=== PATIENT | female | born 1965 | race Caucasian/White ===

== ENCOUNTER → 2017-01-08 | Outpatient (REF) | payer BC ==
[~2017-01-08] MED LIST: ALBU17IN INH; ATOR1TAB21 PO; BIOT50004 PO; CIPR500T89 PO; FLAG500T PO; OMEP20CA3 PO; VITA100066 PO; WELLTAB38 PO
[2017-01-08 16:15] LABS: URIC ACID 4.1 MG/DL (2.6-6.0)
[2017-01-11 00:06] LABS: Lyme Disease IgG/IgM Antibodie <0.91 ISR (0.00-0.90); Lyme Disease IgM Ab Quantitati <0.80 index (0.00-0.79)
== END ==
LOC: M LABDRAW1 15:37
PROVIDERS: ATTEND Internal Medicine Rheumatology
DX: M05.79 Rheumatoid arthritis with rheumatoid factor of multiple sites without organ or systems involvement (principal); M10.09 Idiopathic gout, multiple sites; E55.9 Vitamin D deficiency, unspecified; Z79.899 Other long term (current) drug therapy

== ENCOUNTER → 2017-01-26 | Outpatient (CLI) | payer BC ==
[2017-01-26 11:48] LABS: MICROSCOPIC INDICATED? MAN YES (NO)
[2017-01-26 11:50] LABS: BASO % 0.7 % (0.0-1.0); EOS # 0.1 K/mm3 (0.0-0.50); EOS % 2.5 % (0.0-3.0); LARGE UNSTAINED CELL # 0.1 K/mm3 (0.0-0.4); LARGE UNSTAINED CELL % 1.6 % (0.0-4.0); LYMPH # 2.2 K/mm3 (1.5-4.5); MEAN CORPUSCULAR HEMOGLOBIN 31.2 pg (27.0-33.0); MEAN CORPUSCULAR HGB CONC 34.2 g/dl (32.0-36.5); MONO # 0.2 K/mm3 (0.0-0.8); NEUTROPHILS # 2.9 K/mm3 (1.8-7.7); NEUTROPHILS % 52.1 % (36.0-66.0); PLATELET COUNT, AUTOMATED 287 k/mm3 (150-450); RED CELL DISTRIBUTION WIDTH 11.9 % (11.5-14.5); WHITE BLOOD COUNT 5.6 K/mm3 (4.0-10.0)
[2017-01-26 12:18] LABS: RBC, URINE NONE SEEN /hpf (0-3); SQUAMOUS EPITHELIAL CELL URINE SMALL AMOUNT /hpf (SMALL AMT); WBC, URINE 0-1 /hpf (0-3)
[2017-01-26 12:19] LABS: BACTERIA, URINE NONE SEEN; HYALINE CAST, URINE NONE SEEN /lpf (0-1)
[2017-01-26 12:21] LABS: ALBUMIN 3.5 GM/DL (3.2-5.2); ALKALINE PHOSPHATASE 126 U/L (45-117); ALT/SGPT 39 U/L (12-78); ANION GAP 8 MEQ/L (8-16); AST/SGOT 37 U/L (15-37); BILIRUBIN,TOTAL 0.3 MG/DL (0.2-1.0); BLOOD UREA NITROGEN 11 MG/DL (7-18); CALCIUM LEVEL 8.3 MG/DL (8.5-10.1); CARBON DIOXIDE LEVEL 29 MEQ/L (21-32); CHLORIDE LEVEL 105 MEQ/L (98-107); CREATININE FOR GFR 0.87 MG/DL (0.55-1.02); GLOMERULAR FILTRATION RATE > 60.0 (>51); GLUCOSE, FASTING 121 MG/DL (70-105); MICROSCOPIC EXAM PERFORMED; POTASSIUM SERUM 4.7 MEQ/L (3.5-5.1); SODIUM LEVEL 142 MEQ/L (136-145)
== END ==
LOC: M SMT 08:15
PROVIDERS: ATTEND Internal Medicine Rheumatology
DX: R31.1 Benign essential microscopic hematuria (principal); M05.772 Rheumatoid arthritis with rheumatoid factor of left ankle and foot without organ or systems involvement; Z79.899 Other long term (current) drug therapy

== ENCOUNTER → 2017-05-18 | Outpatient (REF) | payer BC ==
[~2017-05-18] MED LIST changes: +CIPR-249 PO; -CIPR500T89 PO; +ZOLO50TA PO
== END ==
LOC: M LAB REF 12:27
PROVIDERS: ATTEND Nurse Practitioner Family
DX: E78.00 Pure hypercholesterolemia, unspecified (principal)

== ENCOUNTER → 2017-05-22 | Outpatient (CLI) | payer BC ==
[2017-05-22 08:27] LABS: MEAN CORPUSCULAR HEMOGLOBIN 33.1 pg (27.0-33.0); MEAN CORPUSCULAR HGB CONC 34.9 g/dl (32.0-36.5); MEAN CORPUSCULAR VOLUME 94.7 fl (80.0-96.0); RED CELL DISTRIBUTION WIDTH 12.7 % (11.5-14.5); WHITE BLOOD COUNT 7.9 K/mm3 (4.0-10.0)
[2017-05-22 09:48] LABS: ALBUMIN 3.8 GM/DL (3.2-5.2); ALBUMIN/GLOBULIN RATIO 1.15 (1.00-1.93); ALKALINE PHOSPHATASE 153 U/L (45-117); ALT/SGPT 44 U/L (12-78); ANION GAP 10 MEQ/L (8-16); AST/SGOT 31 U/L (15-37); BILIRUBIN,TOTAL 1.1 MG/DL (0.2-1.0); BLOOD UREA NITROGEN 16 MG/DL (7-18); CALCIUM LEVEL 9.1 MG/DL (8.5-10.1); CARBON DIOXIDE LEVEL 25 MEQ/L (21-32); CHLORIDE LEVEL 102 MEQ/L (98-107); CREATININE FOR GFR 0.97 MG/DL (0.55-1.02); GLOMERULAR FILTRATION RATE > 60.0 (>51); GLUCOSE, FASTING 111 MG/DL (70-105); POTASSIUM SERUM 3.5 MEQ/L (3.5-5.1); SODIUM LEVEL 137 MEQ/L (136-145); TOTAL PROTEIN 7.1 GM/DL (6.4-8.2)
== END ==
LOC: M LAB 07:41
PROVIDERS: ATTEND Podiatrist
DX: Z01.818 Encounter for other preprocedural examination (principal)

== ENCOUNTER → 2017-05-30 | Day surgery (SDC) | payer BC ==
[~2017-05-30] VITALS: Ht 174 cm; Wt 85.3 kg
[~2017-05-30] MED LIST changes: +BACITRACIN PWD 50,000 UNITS VIAL As Ordered ONE; +BUPIVACAINE HCL 0.5% 30 ML VIAL As Ordered ONE; +LIDOCAINE 2% INJ 100 MG/5 ML SDV (FOR ANES.) As Ordered ONE; +LIDOCAINE 2% MDV 20 ML VIAL As Ordered ONE; +LR 1,000 ML IV SCH; +MIDAZOLAM INJ 2 MG/2 ML VIAL (J2250) As Ordered ONE; +NEOSPORIN GU IRRIG 20 ML VIAL As Ordered ONE; +ONDANSETRON 4MG/2ML VIAL (J2405) As Ordered ONE; +PROPOFOL 200 MG/20 ML VIAL As Ordered ONE; +PROPOFOL 500 MG/50 ML VIAL As Ordered ONE; +dexameTHASONE 4 MG/ML 1ML VIAL (J1100) As Ordered ONE; +ePHEDrine SULFATE 25 MG/5 ML(5MG/ML) SYRINGE As Ordered ONE; +fentaNYL 100 MCG/2 ML INJECTION (J3010) As Ordered ONE
--- NOTE | 2017-05-30 10:53 | REP ---
Left foot three views postoperative study: Comparisons 01/08/2017. There are multiple osteotomies in the necks of the great toe metatarsal, second digit metatarsal and fifth digit metatarsal with orthopedic screw fixation at each osteotomy site. The skeletal structures and soft tissues are satisfactory positions alignment. There is surgical fusion of the second digit PIP with the skeletal structures and fixation screw are in satisfactory positions alignment. Signed by Joao Elizalde MD 05/30/2017 10:45 A
[2017-05-30 11:05] VITALS: BP 123/77
--- NOTE | 2017-05-30 14:00 | RO ---
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 Tailor's bunion deformity of the left foot. Long second metatarsal left foot. Hammertoe deformity second toe left foot. Ruptured plantar plate secondary metatarsal left foot. 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 Tailor's bunion deformity of the left foot. Long second metatarsal, left foot. Hammertoe deformity second toe, left foot. Ruptured plantar plate secondary metatarsal, left foot. 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 PROCEDURE PERFORMED: 1. Irineo bunionectomy with internal screw fixation, a 3.0 mm x 22 mm times one, left foot. 2. Proximal interphalangeal joint arthroplasty with fusion with a 2.0 x 10 degree angled DigiFuse. 3. 2nd metatarsal osteotomy with internal screw fixation. SURGEON: Sergey Bradshaw DPM COMMERCIAL LITIGATION ATTORNEY: None. ANESTHESIA: Local monitored anesthesia care (MAC). IRRIGATIONS: Dilute bacitracin, neomycin and polymyxin B solution. HEMOSTASIS: Ankle pneumatic tourniquet at 200 mmHg for 104 minutes. HARDWARE UTILIZED: Arthrex snap off screw 2 x 13 mm and a 2 x 11 mm and a Two Tap DART-FIRE 3.0 x 22 and a 2.5 x 16 cannulated screw, and a 2.0 x 10 degree angled DigiFuse. DESCRIPTION OF OPERATION: On 05/30/2017 this 51-year-old white female was taken from her hospital room to the operating room and placed on the operating room table in supine position. Following the induction of IV sedation, local and regional anesthesia, the left lower extremity was prepped and draped in the usual aseptic manner. The left lower extremity was elevated 45 degrees from the horizontal plane for the purpose of preoperative exsanguination of the limb. During this 3 minute time period, an ankle pneumatic tourniquet was applied just proximal to the medial and lateral malleolus, well padded site. To further exsanguinate the limb, a Adonay's esmarch bandage was placed circumferentially extending from the digits to the distal edge of the ankle pneumatic tourniquet. The ankle pneumatic tourniquet was rapidly inflated to 200 mmHg for the purpose of intraoperative hemostasis. Adonay's esmarch bandage was removed. The left lower extremity was returned to the operating room table, sterile drape was placed and the following procedure was performed: RIINEO BUNIONECTOMY WITH INTERNAL SCREW FIXATION, A 3.0 mm x 22 mm TIMES ONE, LEFT FOOT: Attention was directed to the patient's left foot where there was noted to be a hallux valgus deformity. At this time, a 6 cm incision was placed over the first metatarsal phalangeal joint. The incision was deepened through subcutaneous tissues and all coursing venous tributaries were identified, underscored, clamped, cut, ligated, and electrocoagulated as necessary. A linear capsulotomy was then performed in the same plane as the original skin incision. The capsular and periosteal structures were then reflected dorsally, medially and laterally. The hypertrophied medial eminence of the first metatarsal, which was osteotomized from distal to proximal, through and through, exiting medially to the sesamoidal groove. Medially along the capsule there was some calcification in the capsule. This was then removed. Attention was directed into the first intermetatarsal space where dissection was carried down to the level of the conjoined tendon was sharply dissected free from the fibular sesamoid. Attention was directed to the medial aspect of the first metatarsal shaft where a V shaped osteotomy was performed on the distal metaphysis with a long plantar and short dorsal wing. Upon creation of this osteotomy, a capital fragment was transposed 40% of the width of the shaft of the first metatarsal and fixated with a 3.0 x 22 mm DART-FIRE compression screw. It did not penetrate the inferior cartilage on direct visualization. The redundant cortical spike was osteotomized from dorsal to plantar through and through and extirpated from the wound. The medial surface was rasped to a smooth contour. Slight spurring was noted on the dorsal surface of the 1st metatarsal which was rongeured smooth and ten filed with a handheld rasp. The wound was flushed with copious amounts of dilute Bacitracin, Neomycin, and Polymyxin B solution. Attention was directed towards closure where the capsular structures were coapted and maintained utilizing #2-0 Monocryl in a simple interrupted type fashion. The subcutaneous tissues were coapted and maintained utilizing #4-0 Monocryl in a simple interrupted type fashion. The skin incision was coapted and maintained using #5-0 Monocryl in a continuous subcuticular type fashion. Attention was then directed to the 2nd toe where the following procedure was performed. PROXIMAL INTERPHALANGEAL JOINT ARTHROPLASTY WITH FUSION WITH A 2.0 X 10 DEGREE ANGLED DIGIFUSE: Attention was directed to the patient's 2nd toe where an incision was made from the proximal interphalangeal joint to proximal to the metatarsal phalangeal joint. The incision was deepened through subcutaneous tissue and all coursing venous tributaries were identified, underscored, clamped, cut, ligated, and electrocoagulated as necessary. A transverse tenotomy and capsulotomy was then performed to the level of the proximal interphalangeal joint and the medial and lateral collateral ligaments were sharply dissected free from the head of the proximal phalanx. To minimize shortening, an osteotomy was performed just proximal to the articular cartilage of the proximal phalanx from dorsal to plantar, through and through. Cartilage was similarly removed from the base of the middle phalanx. This was then fixated with a 2.0 x 10 degree angled DigiFuse across the second proximal interphalangeal joint, which was noted to be stable. The following procedure was then performed. 2ND METATARSAL OSTEOTOMY WITH INTERNAL SCREW FIXATION: Attention was directed to the second metatarsal phalangeal joint where a transverse tenotomy and capsulotomy was performed over the capsule of the 2nd metatarsal phalangeal joint where considerable joint fluid was noted. Considerable articular erosion was noted on the head of the 2nd metatarsal measuring approximately 6 mm x 8 mm; however, fortunately, there was cartilage present on the proximal phalanx. There was noted to be a tear over the plantar plate on inspection of the joint surfaces of the inferior capsule. Utilizing a saggital saw, a Sally osteotomy was performed paralleling the plantar surface of the foot starting at the head of the 2nd metatarsal, however the cartilage in that area was eroded, and this was shortened approximately 5 mm, temporarily fixated with a 1.6 mm Audrey wire. The plantar plate was inspected and the transverse tear was noted just distal to the proximal phalanx. This was then freed and the plantar surface of the base of the proximal phalanx was roughened with a coarse file. The wound was flushed with copious amounts of dilute bacitracin, neomycin and polymyxin B solution. The plantar plate was then repaired with 0 FiberWire utilizing a mini scorpion through the plantar plate. Two drill tunnels were then placed through the proximal phalanx in a parallel fashion from dorsal to planter, exiting just proximal to the articular cartilage. Utilizing a mini tendon passer, the strands through the plantar plate were then pulled into the dorsal aspect of the proximal phalanx. The K-wire was then removed and the osteotomy was stabilized and two snap off screws were placed, a 2.13 distally and a 2.11 proximally. The toe was then held in a plantar position and the suture strands were tightened, re-delivering the plantar plate to the proximal phalanx. Utilizing a 0.9 wire, the 2nd metatarsal head was fenestrated/microfractured to promote fibrocartilaginous ingrowth. The dorsal surface of the metatarsal was then smoothed and filed with a handheld rasp. The wound was flushed with copious amounts of dilute bacitracin, neomycin and polymyxin B solution. Attention was directed towards closure where the capsular structures were coapted and maintained utilizing #2-0 Monocryl in a simple interrupted type fashion. The medial and lateral strands of the capsule for the collateral ligaments were then reinforced with #3-0 Monocryl in a simple interrupted type fashion. The skin extensor tendon was coapted and maintained with abraded #4-0 nylon loop suture with a four stranded core repair in a modified Parada fashion with peripheral stitch of #4-0 abraded nylon. The subcutaneous tissue were coapted and maintained using #4-0 Monocryl in a simple interrupted type fashion. Skin incisions were coapted and maintained using #4-0 Prolene in a simple interrupted and horizontal mattress type fashion. Attention was then directed to the lateral surface of the foot where a Tailor's bunion deformity was noted. Then the following procedure was performed. TAILOR'S BUNIONECTOMY WITH DISTAL V OSTEOTOMY AND INTERNAL SCREW FIXATION 2.5 x 16 mm TIMES ONE: Attention was directed to the lateral surface of the foot where a 4 cm lateral incision was placed over the metatarsal phalangeal joint. The incision was deepened through subcutaneous tissues and all coursing venous tributaries were identified, underscored, clamped, cut, ligated, and electrocoagulated as necessary. A linear capsulotomy was then performed superior to the abductor digiti minimi tendon. The capsule was then elevated dorsally and plantarly, creating a capsular periosteal type envelope. Utilizing a saggital saw, an osteotomy was performed through the lateral eminence of the 5th metatarsal from dorsal to plantar, through and through. A V shaped osteotomy was then performed in the distal metaphysis of the 5th metatarsal with long plantar and short dorsal wing. It was transposed approximately 30-40% of the width of the shaft of the 5th metatarsal and fixated with a 2.5 x 16 mm cannulated compression screw. The osteotomy was noted to be stable in all three cardinal planes. The redundant cortical spike was osteotomized from dorsal to plantar through and through and extirpated from the wound in toto. The lateral surface was rasped to a smooth contour with a handheld rasp. The wound was flushed with copious amounts of dilute Bacitracin, Neomycin, and Polymyxin B solution. Capsular structures were coapted and maintained using #2-0 Monocryl in a simple interrupted type fashion. The subcutaneous tissues were coapted and maintained utilizing #4-0 Monocryl in a simple interrupted type fashion. The skin incision was coapted and maintained utilizing #5-0 Monocryl in a continuous subcuticular type fashion. This was additionally reinforced with Steri-Strips. Approximately 1 hour and 4 minutes into the procedure, the tourniquet was released and the procedure was completed without ankle pneumatic control of bleeding. A sterile compressive dressing was then applied after 4 mg of dexamethasone sodium phosphate was instilled proximal to the surgical site. This was constructed with Adaptic, 4x4's, 4x4 splints, Taryn and Coban. The patient apparently having tolerated the surgical procedure well, was taken from the OR to the recovery room with vital signs stable, patient afebrile, and for further monitoring by the anesthesia department. All surgical specimens removed during the operative procedure were sent to pathology for examination. Postoperative instructions given upon discharge.
== END | disposition home or self-care (01) ==
LOC: M SDC 06:13
PROVIDERS: ATTEND Podiatrist
DX: M20.12 Hallux valgus (acquired), left foot (principal); M21.612 Bunion of left foot; M20.42 Other hammer toe(s) (acquired), left foot; Q66.89 Other specified congenital deformities of feet; E78.5 Hyperlipidemia, unspecified; F41.9 Anxiety disorder, unspecified; F32.9 Major depressive disorder, single episode, unspecified; Z79.899 Other long term (current) drug therapy
CPT/HCPCS: 28110; 28285; 28296; 28308; 73630; 88300; 97116; A4649; C1713; J0690; J1100; J2250; J2405; J3010

== ENCOUNTER → 2018-04-15 | Outpatient (REF) | payer BC | LOC: M SFHCLERA 04-16 10:40 | DX: L82.1 Other seborrheic keratosis (principal) | CPT/HCPCS: 88305; 88313 ==

== ENCOUNTER → 2018-07-04 | Outpatient (REF) | payer BC ==
[2018-07-06 14:50] LABS: HPV HYBRID CAPTURE II Positive (Negative)
== END ==
LOC: M SFHCWAGY 08:22
DX: Z12.4 Encounter for screening for malignant neoplasm of cervix (principal)
CPT/HCPCS: G0123

== ENCOUNTER → 2018-07-04 | Outpatient (CLI) | payer BC | LOC: M WHC 07:56 | DX: Z12.31 Encounter for screening mammogram for malignant neoplasm of breast (principal) | CPT/HCPCS: 77067 ==

== ENCOUNTER → 2018-09-19 | Outpatient (REF) | payer BC | LOC: M SFHCLERA 09:22 | DX: C44.509 Unspecified malignant neoplasm of skin of other part of trunk (principal) | CPT/HCPCS: 88305 ==

== ENCOUNTER → 2018-10-10 | Outpatient (REF) | payer BC ==
[2018-10-10 18:21] LABS: URIC ACID 6.7 MG/DL (2.6-6.0)
== END ==
LOC: M LAB REF 16:49
DX: M10.9 Gout, unspecified (principal)
CPT/HCPCS: 84550

== ENCOUNTER → 2019-05-21 | Outpatient (REF) | payer BC ==
[~2019-05-21] MED LIST changes: -BACITRACIN PWD 50,000 UNITS VIAL As Ordered ONE; -BUPIVACAINE HCL 0.5% 30 ML VIAL As Ordered ONE; -LIDOCAINE 2% INJ 100 MG/5 ML SDV (FOR ANES.) As Ordered ONE; -LIDOCAINE 2% MDV 20 ML VIAL As Ordered ONE; -LR 1,000 ML IV SCH; -MIDAZOLAM INJ 2 MG/2 ML VIAL (J2250) As Ordered ONE; -NEOSPORIN GU IRRIG 20 ML VIAL As Ordered ONE; -OMEP20CA3 PO; +OMEP20CA4 PO; -ONDANSETRON 4MG/2ML VIAL (J2405) As Ordered ONE; -PROPOFOL 200 MG/20 ML VIAL As Ordered ONE; -PROPOFOL 500 MG/50 ML VIAL As Ordered ONE; -dexameTHASONE 4 MG/ML 1ML VIAL (J1100) As Ordered ONE; -ePHEDrine SULFATE 25 MG/5 ML(5MG/ML) SYRINGE As Ordered ONE; -fentaNYL 100 MCG/2 ML INJECTION (J3010) As Ordered ONE
== END ==
LOC: M SFHCPLAZ 18:24
PROVIDERS: ATTEND Dermatology
DX: L57.0 Actinic keratosis (principal)

== ENCOUNTER → 2019-07-04 | Outpatient (CLI) | payer BC ==
[~2019-07-04] MED LIST changes: +OMEP1CAP73 PO; -OMEP20CA4 PO
--- NOTE | 2019-07-04 12:43 | REP ---
BILATERAL MAMMOGRAM WITH 3D TOMOSYNTHESIS: Bilateral mammography performed in the MLO and CC projections with 3D tomosynthesis. Comparison made with multiple prior exams, most recently 07/04/2018. There is a family history of breast cancer at age 92 in maternal grandmother and at age 45 in maternal cousin. [facility] lifetime risk of breast cancer at 14.9%. Mild scattered fibroglandular tissue is seen bilaterally. There is a rounded nodular density at 6-o'clock position of the right breast measuring approximately 5-6 mm in diameter. Scattered benign-appearing calcifications are seen. IMPRESSION: BIRADS 0: BI-RADS/ACR category 0 mammogram, Incomplete: Need additional imaging evaluation and/or prior mammograms for comparison. ACR 0 incomplete. Nodular density 6-o'clock position right breast approximately 5-6 mm in diameter. Recommend spot compression views and ultrasound to further evaluate. ACR 0 incomplete. This mammogram was interpreted with the aid of an FDA-approved computer-aided detection system. The patient states she/he had a clinical breast exam in 06/2019. The patient letter being requested is M0.
== END ==
LOC: M WHC 09:58
PROVIDERS: ATTEND Nurse Practitioner Women's Health
DX: R92.2 Inconclusive mammogram (principal)

== ENCOUNTER → 2019-07-04 | Outpatient (REF) | payer BC ==
[~2019-07-04] MED LIST changes: -OMEP1CAP73 PO; +OMEP20CA4 PO
[2019-07-04 14:46] LABS: CHLAMYDIA DNA AMPLIFICATION NEGATIVE (NEGATIVE); GC DNA AMPLIFICATION NEGATIVE (NEGATIVE)
[2019-07-08 14:29] LABS: HPV HYBRID CAPTURE II Positive (Negative)
== END ==
LOC: M SFHCWAGY 10:30
PROVIDERS: ATTEND Nurse Practitioner Women's Health
DX: Z12.4 Encounter for screening for malignant neoplasm of cervix (principal)
CPT/HCPCS: 36415; 87389; 87491; 87591; 87624; G0123

== ENCOUNTER → 2019-07-08 | Outpatient (CLI) | payer BC ==
--- NOTE | 2019-07-08 14:08 | REP ---
DIAGNOSTIC MAMMOGRAM RIGHT BREAST WITH RIGHT BREAST ULTRASOUND: Multiple spot compression views right breast performed and correlated with recent mammogram of 07/04/2019 and compared to other prior studies. In the inferior right breast at 6-o'clock to 7 -o'clock position, there is a nodule which appears somewhat ill-defined on spot compression views. It measures 5 x 6 mm. The measurements in 2018 were approximately 4 x 5 mm. Real-time sonographic evaluation of the inferior right breast demonstrates no definite sonographic correlate. IMPRESSION: BIRADS 4: BI-RADS/ACR category 4 mammogram. Suspicious Abnormality - biopsy should be considered. ACR 4 suspicious. Ill-defined nodule 5 x 6 mm at 6-o'clock to 7-o'clock position right breast. There is no definite sonographic correlate. Recommend stereotactic biopsy. Patient letter requested is M4. Electronically Signed by Joao Stoddard MD 07/09/2019 12:07 A
== END ==
LOC: M RAD 12:04
PROVIDERS: ATTEND Nurse Practitioner Women's Health
DX: R92.2 Inconclusive mammogram (principal); N63.10 Unspecified lump in the right breast, unspecified quadrant

== ENCOUNTER → 2019-08-18 | Outpatient (REF) | payer BC ==
[~2019-08-18] MED LIST changes: +OMEP1CAP73 PO; -OMEP20CA4 PO
== END ==
LOC: M SFHCWAGY 13:50
PROVIDERS: ATTEND Nurse Practitioner Women's Health
DX: R87.810 Cervical high risk human papillomavirus (HPV) DNA test positive (principal)

== ENCOUNTER → 2019-12-02 | Outpatient (REF) | payer BC | LOC: M LAB REF 09:38 | PROVIDERS: ATTEND Dermatology | DX: C44.529 Squamous cell carcinoma of skin of other part of trunk (principal) ==

== ENCOUNTER → 2019-12-24 | Outpatient (REF) | payer BC | LOC: M LAB REF 19:25 | PROVIDERS: ATTEND Ophthalmology | DX: D23.122 Other benign neoplasm of skin of left lower eyelid, including canthus (principal) ==

== ENCOUNTER → 2020-01-13 | Outpatient (REF) | payer BC, OTHER | LOC: M LAB REF 08:58 | PROVIDERS: ATTEND Dermatology | DX: L90.5 Scar conditions and fibrosis of skin (principal) ==

== ENCOUNTER → 2020-03-03 | Outpatient (CLI) | payer OTHER | LOC: M LABSMTC 11:55 | PROVIDERS: ATTEND Family Medicine | DX: Z11.59 Encounter for screening for other viral diseases (principal); Z20.828 Contact with and (suspected) exposure to other viral communicable diseases ==

== ENCOUNTER → 2020-07-06 | Outpatient (REF) | payer OTHER, BC | LOC: M LAB REF 12:50 | PROVIDERS: ATTEND Nurse Practitioner Women's Health | DX: Z12.4 Encounter for screening for malignant neoplasm of cervix (principal) ==

== ENCOUNTER → 2020-09-14 | Outpatient (REF) | payer OTHER, BC | LOC: M LAB REF 13:43 | PROVIDERS: ATTEND Dermatology | DX: L72.11 Pilar cyst (principal) ==

== ENCOUNTER → 2020-12-08 | Outpatient (CLI) | payer SELFPAY | LOC: M LABSMTC 12:36 | PROVIDERS: ATTEND Pediatrics | DX: Z20.822 Contact with and (suspected) exposure to COVID-19 (principal) ==

== ENCOUNTER 2021-01-31 07:35 | Emergency (ER) | payer BC, OTHER ==
[~2021-01-31] VITALS: Ht 172.7 cm; Wt 106.1 kg
[2021-01-31] MEDS ORDERED: FLUTISP (07:45)
[2021-01-31] MEDS ORDERED: METF500T13 (07:45)
[2021-01-31] MEDS ORDERED: BREO1INH (07:45)
[2021-01-31] MEDS ORDERED: PANT40TA29 (07:45)
[2021-01-31 08:35] LABS: BASO # 0.1 10^3/uL (0.0-0.2); BASO % 0.4 % (0.0-1.0); EOS # 0.1 10^3/uL (0.0-0.5); EOS % 0.6 % (0.0-3.0); HEMATOCRIT 43.3 % (36.0-47.0); HEMOGLOBIN 14.9 g/dl (12.0-15.5); LYMPH # 2.2 10^3/uL (1.5-5.0); LYMPH % 15.5 % (24.0-44.0); MEAN CORPUSCULAR HGB CONC 34.4 g/dl (32.0-36.5); MEAN CORPUSCULAR VOLUME 90.2 fl (80.0-96.0); PLATELET COUNT, AUTOMATED 240 10^3/uL (150-450); WHITE BLOOD COUNT 14.5 10^3/uL (4.0-10.0)
[2021-01-31 08:56] LABS: ALBUMIN 3.7 GM/DL (3.2-5.2); BILIRUBIN,DIRECT 0.2 MG/DL (0.0-0.2); BILIRUBIN,TOTAL 0.6 MG/DL (0.2-1.0); TOTAL PROTEIN 7.5 GM/DL (6.4-8.2)
[2021-01-31] MEDS ORDERED: NS 1,000 ML IV ONE (09:15)
[2021-01-31] MEDS ORDERED: ISOVUE-370 76% 100ML VIAL As Ordered ONE (09:18)
--- NOTE | 2021-01-31 10:05 | REP ---
INDICATION: LLQ pain, hx diverticulitis feels the same COMPARISON: None. TECHNIQUE: CT Scan of the abdomen and pelvis was performed with intravenous administration of 100 cc of Isovue 370, without oral contrast. Sagittal and coronal reconstruction images are performed. FINDINGS: Lung bases: Unremarkable. Liver: There is diffuse fatty infiltration of the liver. Gallbladder: Unremarkable. Spleen: Normal. Adrenals: Normal. Pancreas: Normal. Kidneys: Normal. Small and large bowel: There is colonic diverticulosis. There is segmental thickening of the sigmoid colon with streaky pericolonic inflammation compatible with diverticulitis. Free fluid: None. Abdominal aorta: No aneurysm or dissection. Adenopathy: None. Appendix: Not inflamed. Osseous structures: There are degenerative changes of the spine without compression deformity. Pelvis: No mass. IMPRESSION: Sigmoid diverticulitis. No free air, free fluid or abscess. <Electronically signed by Joao Stoddard > 01/31/21 1001
[2021-01-31] MEDS ORDERED: CIPROFLOXACIN 500MG TABLET PO ONE (10:20)
[2021-01-31] MEDS ORDERED: metroNIDAZOLE (FLAGYL) 500MG TABLET PO ONE (10:20)
[2021-01-31 10:27] VITALS: BP 153/75
[2021-01-31] MEDS ORDERED: FLAG500T PO (10:29)
[2021-01-31] MEDS ORDERED: CIPR-249 PO (10:29)
== END 2021-01-31 11:26 | disposition home or self-care (01) ==
LOC: M ED 07:35
DX: K57.32 Diverticulitis of large intestine without perforation or abscess without bleeding (principal); E11.9 Type 2 diabetes mellitus without complications; I10 Essential (primary) hypertension; E78.5 Hyperlipidemia, unspecified; F41.9 Anxiety disorder, unspecified; F32.9 Major depressive disorder, single episode, unspecified; J45.909 Unspecified asthma, uncomplicated; K21.9 Gastro-esophageal reflux disease without esophagitis; K57.30 Diverticulosis of large intestine without perforation or abscess without bleeding; Z79.899 Other long term (current) drug therapy
CPT/HCPCS: 36415; 74177; 80047; 80076; 83605; 83690; 85025; 96360; 96361; 99284; Q9967

== ENCOUNTER → 2021-02-28 | Outpatient (REF) | payer OTHER ==
[~2021-02-28] MED LIST changes: +BREO1INH; +FLUTISP; +METF500T13; +PANT40TA29
== END ==
LOC: M LAB REF 13:52
PROVIDERS: ATTEND Dermatology
DX: L90.5 Scar conditions and fibrosis of skin (principal)

== ENCOUNTER → 2021-03-01 | Outpatient (REF) | payer OTHER | LOC: M LAB REF 16:39 | PROVIDERS: ATTEND Internal Medicine | DX: R10.9 Unspecified abdominal pain (principal) ==

== ENCOUNTER → 2021-05-01 | Outpatient (CLI) | payer OTHER ==
[~2021-05-01] MED LIST changes: -METF500T13; +METF500T13 PO; -PANT40TA29; +PANT40TA29 PO
== END ==
LOC: M LABSMTC 09:06
PROVIDERS: ATTEND Anesthesiology
DX: Z01.812 Encounter for preprocedural laboratory examination (principal); Z20.828 Contact with and (suspected) exposure to other viral communicable diseases

== ENCOUNTER 2021-05-06 06:44 | Day surgery (SDC) | payer OTHER ==
[~2021-05-06] VITALS: Ht 174 cm; Wt 104.8 kg
[~2021-05-06 06:44] MED LIST changes: +NS 1,000 ML IV ONE
[2021-05-06] MEDS ORDERED: LIDOCAINE 2% 100MG/5ML SDV (FOR ANES.) As Ordered ONE (07:15)
[2021-05-06] MEDS ORDERED: propofoL 200 MG/20 ML VIAL As Ordered ONE ×3 (07:15→07:50)
--- NOTE | 2021-05-06 07:59 | ROOR ---
Patient Name: Vanessa Elena Procedure Date: 05/06/2021 7:30 AM Date of : 1965 Age: 55 Room: [facility] Gender: Female Note Status: Finalized Procedure: Total Colonoscopy to Cecum + Cold Snare Polypectomy + Hemoclips Indications: Diverticulitis, Follow-up of diverticulitis Providers: Peña Szymanski MD Referring MD: Jo-Ann SANTANA MD Requesting Provider: Medicines: Monitored Anesthesia Care Complications: No immediate complications. Procedure: Pre-Anesthesia Assessment: - The heart rate, respiratory rate, oxygen saturations, blood pressure, adequacy of pulmonary ventilation, and response to care were monitored throughout the procedure. The Colonoscope was introduced through the anus and advanced to the cecum, identified by appendiceal orifice and ileocecal valve. The colonoscopy was performed without difficulty. The patient tolerated the procedure well. The quality of the bowel preparation was excellent. Findings: The perianal and digital rectal examinations were normal. Internal hemorrhoids were found during retroflexion. The hemorrhoids were small and Grade I (internal hemorrhoids that do not prolapse). Scattered small-mouthed diverticula were found in the colon. A small polyp was found in the transverse colon. The polyp was sessile. The polyp was removed with a cold snare. Resection and retrieval were complete. To prevent bleeding after the polypectomy, two hemostatic clips were successfully placed (MR conditional). There was no bleeding at the end of the procedure. The exam was otherwise without abnormality on direct and retroflexion views. Impression: - Internal hemorrhoids. - Diverticulosis. - One small polyp in the transverse colon, removed with a cold snare. Resected and retrieved. Clips (MR conditional) were placed. - The examination was otherwise normal on direct and retroflexion views. - The exam was otherwise normal to the cecum. Recommendation: - Patient has a contact number available for emergencies. The signs and symptoms of potential delayed complications were discussed with the patient. Return to normal activities tomorrow. Written discharge instructions were provided to the patient. - High fiber diet. - Discharge patient to home. - Continue present medications. - Await pathology results. - Telephone GI clinic for pathology results in 1 week. - Repeat colonoscopy in 5 years for surveillance based on pathology results. - Return to referring physician. - The findings and recommendations were discussed with the patient's family. Procedure Code(s): --- Professional --- 24101, Colonoscopy, flexible; with removal of tumor(s), polyp(s), or other lesion(s) by snare technique Diagnosis Code(s): --- Professional --- K64.0, First degree hemorrhoids K63.5, Polyp of colon K57.32, Diverticulitis of large intestine without perforation or abscess without bleeding K57.30, Diverticulosis of large intestine without perforation or abscess without bleeding CPT copyright 2019 [employer]. All rights reserved. The codes documented in this report are preliminary and upon cancer program consultant review may be revised to meet current compliance requirements. Peña Szymanski MD Peña Szymanski MD 05/06/2021 7:59:24 AM Electronically signed by Peña Szymanski MD Number of Addenda: 0 Note Initiated On: 05/06/2021 7:30 AM Estimated Blood Loss: Estimated blood loss: none.
[2021-05-06 08:16] VITALS: BP 161/88
== END 2021-05-06 08:17 | disposition home or self-care (01) ==
LOC: M OPP 06:44
PROVIDERS: ATTEND Internal Medicine Gastroenterology
DX: D12.3 Benign neoplasm of transverse colon (principal); K57.20 Diverticulitis of large intestine with perforation and abscess without bleeding; R19.7 Diarrhea, unspecified; R53.83 Other fatigue; Z86.010 Personal history of colon polyps; Z79.84 Long term (current) use of oral hypoglycemic drugs; Z79.899 Other long term (current) drug therapy; Z80.52 Family history of malignant neoplasm of bladder; Z80.49 Family history of malignant neoplasm of other genital organs

== ENCOUNTER → 2021-08-01 | Outpatient (REF) | payer OTHER ==
[~2021-08-01] MED LIST changes: -NS 1,000 ML IV ONE
== END ==
LOC: M LAB REF 19:24
PROVIDERS: ATTEND Physician Assistant
DX: L57.0 Actinic keratosis (principal)

== ENCOUNTER → 2021-08-09 | Outpatient (REF) | payer OTHER | LOC: M SFHCWAGY 13:06 | PROVIDERS: ATTEND Nurse Practitioner Women's Health | DX: Z12.4 Encounter for screening for malignant neoplasm of cervix (principal); Z01.419 Encounter for gynecological examination (general) (routine) without abnormal findings ==

== ENCOUNTER → 2021-08-31 | Outpatient (REF) | payer OTHER | LOC: M LAB REF 14:41 | PROVIDERS: ATTEND Physician Assistant | DX: C44.519 Basal cell carcinoma of skin of other part of trunk (principal) ==

== ENCOUNTER → 2021-10-17 | Outpatient (REF) | payer OTHER | LOC: M SFHCWAGY 16:56 | PROVIDERS: ATTEND Nurse Practitioner Women's Health | DX: R39.15 Urgency of urination (principal) ==

== ENCOUNTER → 2021-10-20 | Outpatient (CLI) | payer OTHER | LOC: M WHC 07:22 | PROVIDERS: ATTEND Nurse Practitioner Women's Health | DX: N93.9 Abnormal uterine and vaginal bleeding, unspecified (principal); N85.4 Malposition of uterus ==

== ENCOUNTER → 2022-07-28 | Outpatient (REF) | payer OTHER ==
[2022-07-29 08:13] LABS: LDL DIRECT 81 mg/dL (0-99)
== END ==
LOC: M LAB REF 12:16
PROVIDERS: ATTEND Internal Medicine
DX: E78.00 Pure hypercholesterolemia, unspecified (principal)

== ENCOUNTER → 2022-08-16 | Outpatient (CLI) | payer OTHER | LOC: M WHC 09:00 | PROVIDERS: ATTEND Nurse Practitioner Family | DX: Z12.4 Encounter for screening for malignant neoplasm of cervix (principal); N95.2 Postmenopausal atrophic vaginitis | CPT/HCPCS: 87624; G0123 ==

== ENCOUNTER → 2023-02-06 | Outpatient (REF) | payer OTHER | LOC: M LAB REF 12:42 | PROVIDERS: ATTEND Internal Medicine | DX: M10.9 Gout, unspecified (principal) ==

== ENCOUNTER → 2023-04-30 | Outpatient (REF) | payer OTHER ==
[~2023-04-30] MED LIST changes: +FLUT50SP17; -FLUTISP
== END ==
LOC: M SFHCDERM 17:06
PROVIDERS: ATTEND Physician Assistant
DX: D49.2 Neoplasm of unspecified behavior of bone, soft tissue, and skin (principal)

== ENCOUNTER → 2023-08-27 | Outpatient (REF) | payer OTHER | LOC: M SFHCWAGY 15:29 | PROVIDERS: ATTEND Nurse Practitioner Family | DX: Z12.4 Encounter for screening for malignant neoplasm of cervix (principal) | CPT/HCPCS: 87624; G0123 ==

== ENCOUNTER → 2023-12-10 | Outpatient (CLI) | payer OTHER ==
[~2023-12-10] MED LIST changes: -BIOT50004 PO; +BIOT5CAP8 PO; -FLUT50SP17; +FLUTISP
== END ==
LOC: M SLEEP HO 10:11
PROVIDERS: ATTEND Nurse Practitioner Family
DX: R40.0 Somnolence (principal)

== ENCOUNTER → 2024-01-22 | Outpatient (REF) | payer OTHER | LOC: M LAB REF 16:51 | PROVIDERS: ATTEND Internal Medicine | DX: M10.9 Gout, unspecified (principal) ==

== ENCOUNTER → 2024-07-11 | Outpatient (CLI) | payer OTHER | LOC: M WUC 13:22 | PROVIDERS: ATTEND Physician Assistant | DX: M79.674 Pain in right toe(s) (principal); Z87.81 Personal history of (healed) traumatic fracture; M19.071 Primary osteoarthritis, right ankle and foot ==

== ENCOUNTER → 2024-08-28 | Outpatient (REF) | payer OTHER ==
[2024-09-01 14:57] LABS: HPV APTIMA Detected (Not Detected)
== END ==
LOC: M SFHCWAGY 13:04
PROVIDERS: ATTEND Nurse Practitioner Family
DX: Z12.4 Encounter for screening for malignant neoplasm of cervix (principal); N95.2 Postmenopausal atrophic vaginitis; R87.810 Cervical high risk human papillomavirus (HPV) DNA test positive
CPT/HCPCS: 87624; G0123

== ENCOUNTER → 2024-10-31 | Outpatient (CLI) | payer OTHER | LOC: M SOG 14:49 | PROVIDERS: ATTEND Physician Assistant | DX: M77.32 Calcaneal spur, left foot (principal) ==

== ENCOUNTER → 2024-11-17 | Outpatient (CLI) | payer OTHER | LOC: M PLAIMG 06:34 | PROVIDERS: ATTEND Physician Assistant | DX: M79.672 Pain in left foot (principal); S86.012A Strain of left Achilles tendon, initial encounter; X58.XXXA Exposure to other specified factors, initial encounter; Y92.9 Unspecified place or not applicable; Y93.9 Activity, unspecified; Y99.9 Unspecified external cause status; M19.072 Primary osteoarthritis, left ankle and foot ==

== ENCOUNTER → 2025-03-10 | Outpatient (REF) | payer OTHER | LOC: M LAB REF 11:51 | PROVIDERS: ATTEND Internal Medicine | DX: M10.9 Gout, unspecified (principal) ==

== ENCOUNTER → 2025-09-11 | Outpatient (REF) | payer OTHER ==
[2025-09-15 13:42] LABS: HPV APTIMA Detected (Not Detected)
== END ==
LOC: M SFHCWAGY 14:25
PROVIDERS: ATTEND Advanced Practice Midwife
DX: Z12.4 Encounter for screening for malignant neoplasm of cervix (principal)
CPT/HCPCS: 87624; G0123

== ENCOUNTER → 2025-10-06 | Outpatient (CLI) | payer OTHER ==
[2025-10-06 08:46] LABS: ALT/SGPT 22.0 U/L (7.0-40); AST/SGOT 17.0 U/L (<34); CALCIUM LEVEL 8.9 MG/DL (8.3-10.6); CARBON DIOXIDE LEVEL 29.0 MMOL/L (20-31); CHLORIDE LEVEL 104.0 MMOL/L (98-107); CHOLESTEROL LEVEL 171.0 MG/DL (<200); CHOLESTEROL RISK RATIO 3.39 (<5); CREATININE FOR GFR 0.78 MG/DL (0.55-1.30); GLOMERULAR FILTRATION RATE 86.4 (>45); LDL CHOLESTEROL 67.9 MG/DL (<100); NON-HDL-C 120.7 MG/DL; POTASSIUM SERUM 4.4 MMOL/L (3.5-5.1); SODIUM LEVEL 144.0 MMOL/L (136-145); TRIGLYCERIDES LEVEL 264.0 MG/DL (<150)
[2025-10-06 08:49] LABS: ESTIMATED AVERAGE GLUCOSE 123.0 MG/DL (60-110)
== END ==
LOC: M LAB 07:30
PROVIDERS: ATTEND Nurse Practitioner Family
DX: E11.9 Type 2 diabetes mellitus without complications (principal); E78.2 Mixed hyperlipidemia

== ENCOUNTER → 2025-10-15 | Outpatient (REF) | payer OTHER | LOC: M SFHCWAGY 15:27 | PROVIDERS: ATTEND Advanced Practice Midwife | DX: R87.610 Atypical squamous cells of undetermined significance on cytologic smear of cervix (ASC-US) (principal); R87.810 Cervical high risk human papillomavirus (HPV) DNA test positive ==